=== PATIENT | female | born 1960 | race Caucasian/White ===

== ENCOUNTER 2016-12-05 09:14 | Day surgery (SDC) | payer BC ==
[~2016-12-05 09:14] MED LIST: ACETAMINOPHEN 1000MG/100 ML PREMIX IV ONE
[2016-12-05] MEDS ORDERED: FENTANYL PF 100MCG/2ML VIAL IV ONE (14:40)
[2016-12-05] MEDS ORDERED: BUPIVACAINE 0.25% W/EPI MPF 30ML VIAL IVP ONE (14:40)
[2016-12-05] MEDS ORDERED: HYDROCODONE/APAP 7.5/325MG TABLET PO ONE (14:40)
[2016-12-05] MEDS ORDERED: LIDOCAINE 2% MDV (20MG/ML) 20ML VIAL IV ONE (14:57)
[2016-12-05] MEDS ORDERED: MEPERIDINE 50 MG/1 ML VIAL IVP ONE (14:57)
[2016-12-05] MEDS ORDERED: PROPOFOL 10 MG/ML VIAL IV ONE (14:57)
--- NOTE | 2016-12-06 10:52 | Operative Note ---
DATE OF SURGERY: 12/05/2016. SURGEON: Oscar Bueno D.O. REFERRING PHYSICIAN: Jaime Villalobos M.D. PREOPERATIVE DIAGNOSES: 1. TORN MEDIAL MENISCUS OF THE RIGHT KNEE. 2. SYNOVITIS OF THE RIGHT KNEE. 3. CHONDROMALACIA OF THE RIGHT KNEE. POSTOPERATIVE DIAGNOSES: 1. TORN MEDIAL MENISCUS OF THE RIGHT KNEE. 2. SYNOVITIS OF THE RIGHT KNEE. 3. CHONDROMALACIA OF THE RIGHT KNEE. OPERATIVE PROCEDURE: 1. Arthroscopic partial medial meniscectomy of the right knee. 2. Arthroscopic partial synovectomy of the right knee (two compartments). 3. Arthroscopic chondroplasty of the medial femoral condyle of the right knee. DESCRIPTION OF PROCEDURE: This 56-year-old female was taken to the operating room and was placed in the supine position on the operating room table. A general anesthetic was induced, and the right lower extremity was elevated and exsanguinated. A tourniquet was inflated to 300 mm Hg. An arthroscopic knee humphrey was applied. The right knee was prepped with Hibiclens and draped in the usual sterile fashion. An inferolateral portal was established with a 4.0 mm arthroscope. Initial evaluation of the joint demonstrated normal appearance of the suprapatellar pouch. 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 We established an inferomedial portal, and probing demonstrated evidence of fissuring of the patella, but no gross instability of the articular cartilage was present. It was therefore not further disturbed. The trochlea, however, appeared normal. Some synovitis was present in the trochlea and the fat pad, and partial synovectomy was performed. The medial compartment was entered and, while scanning the medial gutter, we were able to visualize fragments of articular cartilage which had broken off from the medial femoral condyle. This was evacuated from the joint. The medial femoral condyle demonstrated marked cracking and fissuring and several large flaps of articular cartilage which had broken off from the subchondral bone. These were unstable, and chondroplasty was performed to stabilize the articular cartilage. In the center of the weightbearing surface, there was an area of approximately 1.5 cm of what was essentially a grade 4 lesion. It did have a very thin layer of articular cartilage still covering the subchondral bone, but very little. This was smoothed as much as possible with the rotating shaver. We probed the medial meniscus, and the patient had a root tear of the medial meniscus as demonstrated on MRI, but there was also a horizontal cleavage component as well to about the 12 o'clock position. We utilized the basket forceps and rotating shaver and resected unstable fragments of the meniscus. It was resected to a depth of approximately 5.0 to 6.0 mm. Once the unstable fragments had been resected, it was reprobed and was confirmed to be stable. The intracondylar notch demonstrated extensive synovitis present also in the anteromedial compartment. However the intracondylar notch was even worse, and partial synovectomy was performed. The anterior cruciate ligament was visualized and was found to be normal. The lateral compartment was entered. This demonstrated pristine articular cartilage of the lateral femoral condyle. The lateral meniscus was probed and was found to be normal as was the tibial plateau. The joint was then copiously irrigated and suctioned. All areas were re-examined, and no additional findings were present. The joint was suctioned and the instruments were removed. The portals were infiltrated with 0.25% Marcaine with epinephrine. We put a single 4-0 nylon stitch in each puncture site. Sterile dressings were applied. The tourniquet knee humphrey was released. The patient was taken to the recovery room in satisfactory condition. 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 In addition, there was a root tear with a horizontal cleavage component also identified of the posterior horn of the medial meniscus. There was grade 2 chondromalacia of the patella, and significant synovitis was also present as described above. Oscar Bueno D.O. Date Time Job Number: [id number] [facility]
== END 2016-12-05 12:35 | disposition home or self-care (01) ==
LOC: SUR 09:14
PROVIDERS: ATTEND Orthopaedic Surgery
DX: M23.221 Derangement of posterior horn of medial meniscus due to old tear or injury, right knee (principal); M94.261 Chondromalacia, right knee; M65.9 Synovitis and tenosynovitis, unspecified; M06.9 Rheumatoid arthritis, unspecified; I49.3 Ventricular premature depolarization
CPT/HCPCS: 29881; 29876; 01400; J3010